=== PATIENT | female | born 1960 | race Caucasian/White ===

== ENCOUNTER → 2017-09-12 08:05 | Outpatient (CLI) | payer OTHER, SELFPAY ==
--- NOTE | 2017-09-12 | DI.US.S_ITS ---
PROCEDURE: US PELVIC COMPLETE INDICATIONS: PAIN AND PRESSURE IN PELVIS TECHNIQUE: Real-time scanning was performed of the pelvic organs, with image documentation. Additional endovaginal scanning was necessary due to incomplete visualization of the adnexal and endometrial structures by transabdominal scanning. COMPARISON: None. FINDINGS: Transabdominal scanning: Limited scanning through the kidneys shows no hydronephrosis. No pathologic free abdominal or pelvic fluid. Endovaginal scanning: Uterus: Uterus is normal in size at 6.2 x 2.2 x 4 point cm. The endometrium measures 2 mm in combined thickness. There is a left posterior intradural focus of heteroechogenicity measuring 5 x 6 mm. Ovaries: The ovaries are not visualized. Adnexal regions are unremarkable. IMPRESSION: 1. 5 x 6 mm focus of heteroechogenicity within the uterus suspicious for small fibroid. Dictated by: Tonya Galeano M.D. on 09/12/2017 at 13:23 Approved by: Tonya Galeano M.D. on 09/12/2017 at 13:39
== END ==
PROVIDERS: Visit Provider Physician Assistant Medical
DX: R10.2 Pelvic and perineal pain (principal); D25.9 Leiomyoma of uterus, unspecified
CPT/HCPCS: 76856